=== PATIENT | male | born 1965 | race Caucasian/White ===

== ENCOUNTER 2017-11-19 17:48 | Emergency (ER) | payer SELFPAY ==
[2017-11-19 17:58] VITALS: BP 127/85; PULSE 96; TEMP 98.5; O2SAT 96
[2017-11-19] MEDS ORDERED: Naproxen 550 mg Tab PO STA (19:09)
[2017-11-19] MEDS ORDERED: Naproxen 550 mg Tab PO ONE (19:17)
[2017-11-19 19:28] LABS: URINE BILIRUBIN NEGATIVE (NEGATIVE); URINE BLOOD NEGATIVE (NEGATIVE); URINE CLARITY Clear (Clear); URINE COLOR Yellow (YELLOW); URINE GLUCOSE (UA) NORMAL (Normal); URINE LEUKOCYTE ESTERASE NEG Leu/uL (Negative); URINE PROTEIN NEGATIVE (NEGATIVE); URINE UROBILINOGEN NORMAL mg/dL (0.2-1.0)
--- NOTE | 2017-11-19 20:20 | C.PDOC ---
Time Seen by Provider: 11/19/17 18:58 Chief Complaint (Nursing): Abdominal Pain History Per: Patient Onset/Duration Of Symptoms: Hrs, Intermittent Episodes Current Symptoms Are (Timing): Gone Severity: Moderate Location Of Pain/Discomfort: Suprapubic Quality Of Discomfort: Unable To Describe, "Pain" Exacerbating Factors: None Alleviating Factors: None Additional History Per: Prior Records Past Medical History Reviewed: Historical Data, Nursing Documentation, Vital Signs Vital Signs: Last Vital Signs Temp 98.5 F 11/19/17 17:55 Pulse 96 H 11/19/17 17:55 Resp 18 11/19/17 17:55 BP 127/85 11/19/17 17:55 Pulse Ox 96 11/19/17 17:55 - Medical History PMH: HTN Surgical History: No Surg Hx Family History: States: Unknown Family Hx - Social History Hx Tobacco Use: Yes Hx Alcohol Use: Yes Hx Substance Use: No - Immunization History Hx Tetanus Toxoid Vaccination: No Hx Influenza Vaccination: No Hx Pneumococcal Vaccination: No Review Of Systems Except As Marked, All Systems Reviewed And Found Negative. Constitutional: Negative for: Fever, Weakness Cardiovascular: Negative for: Chest Pain Respiratory: Negative for: Shortness of Breath Gastrointestinal: Negative for: Vomiting, Diarrhea, Melena, Hematochezia, Hematemesis, Rectal Pain Genitourinary: Negative for: Dysuria, Hematuria, Scrotal Pain Musculoskeletal: Positive for: Back Pain (lower, on/off for 1 month). Negative for: Neck Pain Skin: Negative for: Rash Neurological: Negative for: Weakness, Numbness Physical Exam - Physical Exam Appears: Non-toxic, No Acute Distress Skin: Normal Color, Warm, Dry, No Rash Head: Atraumatic, Normacephalic Eye(s): bilateral: Normal Inspection, PERRL, EOMI Neck: Normal ROM, Supple Cardiovascular: Rhythm Regular Respiratory: Normal Breath Sounds, No Accessory Muscle Use Gastrointestinal/Abdominal: Soft, No Tenderness, No Mass, No Distention Back: No CVA Tenderness, No Vertebral Tenderness Extremity: Normal ROM Neurological/Psych: Oriented x3, Normal Motor, Normal Sensation ED Course And Treatment - Laboratory Results Interpretation Of Abnormal: Urinalysis normal O2 Sat by Pulse Oximetry: 96 Pulse Ox Interpretation: Normal - Other Rad LS spine x-rays X-Ray: Interpreted by Me, Viewed By Me Interpretation: No acute fx Reassessment Condition: Improved Disposition Counseled Patient/Family Regarding: Studies Performed, Diagnosis, Need For Followup, Rx Given - Disposition Disposition: HOME/ ROUTINE Disposition Time: 20:19 Condition: STABLE Additional Instructions: Drink plenty of fluids. Follow up with your doctor for further evaluation and treatment. Return to the ER if you develop fever, vomiting, weakness, numbness, trouble urinating, worsening of symptoms or if you have any other concerns. Prescriptions: Cyclobenzaprine [Cyclobenzaprine HCl] 10 mg PO TID PRN #15 tab PRN Reason: Muscle Spasm Naproxen [Naprosyn] 1 tab PO BID PRN #20 tab PRN Reason: Pain Polyethylene Glycol 3350 [Miralax] 17 gm PO DAILY #7 packet Instructions: Low Back Pain (DC) Forms: General Discharge Instructions - Clinical Impression Clinical Impression: Acute suprapubic pain, Low back pain
[2017-11-19 20:29] VITALS: RESP 20
--- NOTE | 2017-11-20 08:18 | RAD ---
Lumbar spine three views History: Low back pain. Comparison: None available. Findings: Spinal alignment is maintained. Vertebral body heights are preserved. Disc space narrowing noted at the T10-11 level as well as the L5-S1 level. Minimal anterior osteophytosis at the L4-5 and L5-S1 levels. Mild lower level facet hypertrophy at the L5-S1 level. Few inferior endplate concavities at the L5 and T11 vertebral bodies. Mild superior endplate concavities of the T12 vertebral body. Impression: Mild degenerative changes. If pain persists, consider MRI.
== END 2017-11-19 20:28 | disposition home or self-care (01) ==
LOC: C.ER 17:48
DX: M54.5 Low back pain (principal); R10.30 Lower abdominal pain, unspecified; I10 Essential (primary) hypertension; Z72.0 Tobacco use

== ENCOUNTER 2017-11-25 20:18 | Emergency (ER) | payer SELFPAY ==
[2017-11-25 20:33] VITALS: RESP 20; TEMP 98.2; O2SAT 98
[2017-11-25] MEDS ORDERED: Enoxaparin 40 mg Syringe SC STA (21:45)
--- NOTE | 2017-11-25 21:47 | C.PDOC ---
Time Seen by Provider: 11/25/17 21:28 Chief Complaint (Nursing): Chest Pain Past Medical History Vital Signs: Last Vital Signs Temp 98.2 F 11/25/17 20:30 Pulse 93 H 11/25/17 20:30 Resp 20 11/25/17 20:30 BP 147/96 H 11/25/17 20:30 Pulse Ox 98 11/25/17 21:47 - Medical History PMH: HTN Family History: States: Unknown Family Hx - Social History Hx Tobacco Use: Yes Hx Alcohol Use: Yes Hx Substance Use: No - Immunization History Hx Tetanus Toxoid Vaccination: No Hx Influenza Vaccination: No Hx Pneumococcal Vaccination: No ED Course And Treatment O2 Sat by Pulse Oximetry: 98 Medical Decision Making Medical Decision Making: explaining pt's L chest pain seemed positionally reproducable with normal EKG pt's asking further questions which infuriated the pt- noted pt's HR increased to 150 and BP increased significantly. pt demanded to be released immediately, signed AMA papers, promises nurses to return Pt is aware he had a potentially fatal arrhythmia in the ED (Rapid AF @ 150) and verbalized understanding, then followed with, " I don't care, I want to be dicharged now." AMA paperwork completed by MAXIME Gil and signed by pt and this MD Considering pt's morbid obesity, alcohol and cigarette abuse pt in very high risk category for ACS and/or CVA/thrombosis- explained to pt and who verbalized understanding. Disposition - Disposition Disposition: AGAINST MEDICAL ADVICE Disposition Time: 21:53 Condition: FAIR Forms: [facility] (Icelandic) - Clinical Impression Clinical Impression: Chest pain at rest, Rapid atrial fibrillation
[2017-11-25] MEDS ORDERED: Enoxaparin 100 mg Syringe ONE (21:54)
[2017-11-25 21:56] VITALS: BP 188/133
[2017-11-25 22:00] LABS: BASO # 0.1 K/uL (0.0-0.2); EOS # 0.5 K/uL (0.0-0.7); EOS % 4.7 % (0.0-4.0); HEMOGLOBIN 14.3 g/dL (12.0-18.0); LYMPH # 2.8 K/uL (1.0-4.3); LYMPH % 28.7 % (20.0-40.0); MEAN CELL VOLUME 82.1 fL (80.0-94.0); MEAN CORPUSCULAR HEMOGLOBIN 27.9 pg (27.0-31.0); MEAN PLATELET VOLUME 8.3 fL (7.2-11.7); MONO # 0.8 K/uL (0.0-0.8); MONO % 7.7 % (0.0-10.0); NEUT # 5.7 K/uL (1.8-7.0); NEUT % 57.9 % (50.0-75.0); NRBC % 0.1 % (0.0-2.0); RBC 5.13 Mil/uL (4.40-5.90); RED CELL DISTRIBUTION WIDTH 13.1 % (11.5-14.5); WHITE BLOOD COUNT 9.9 K/uL (4.8-10.8)
[2017-11-25 22:04] VITALS: PULSE 110
[2017-11-25 22:11] LABS: PARTIAL THROMBOPLASTIN TIME 30 SECONDS (21-34); PROTHROMBIN TIME 11.5 SECONDS (9.7-12.2)
[2017-11-25 22:18] LABS: ALT/SGPT 68 U/L (21-72); AST/SGOT 36 U/L (17-59); BLOOD UREA NITROGEN 10 mg/dL (9-20); CALCIUM 8.8 mg/dl (8.6-10.4); GFR AFRICAN-AMERICAN > 60; GFR NON-AFRICAN AMERICAN > 60
[2017-11-25 22:28] LABS: B-TYPE NATRIURETIC PEPTIDE 23.7 pg/mL (0-900)
[2017-11-25 22:42] LABS: D DIMER < 200 ng/mlDDU (0-243)
--- NOTE | 2017-11-26 07:03 | C.PDOC ---
History Of Present Illness 52 year old male presents to the ED for evaluation of left upper chest and left shoulder discomfort which began [employer]. Patient states symptoms resolved prior to arrival. Patient was evaluated in [facility] on 11/19 for complaints of abdominal pain and back pain and was diagnosed with back strain and constipation. Patient states he took a laxative and was able to find relief. Patient admits to smoking cigarettes and alcohol use. He denies nausea, vomiting, extremity numbness/weakness. Time Seen by Provider: 11/25/17 21:28 Chief Complaint (Nursing): Chest Pain History Per: Patient History/Exam Limitations: no limitations Onset/Duration Of Symptoms: Hrs Current Symptoms Are (Timing): Better Quality: "Pain" Additional History Per: Patient Past Medical History Reviewed: Historical Data, Nursing Documentation, Vital Signs Vital Signs: Last Vital Signs Temp 98.2 F 11/25/17 20:30 Pulse 110 H 11/25/17 22:03 Resp 20 11/25/17 22:03 BP 188/133 H 11/25/17 22:03 Pulse Ox 98 11/26/17 07:09 - Medical History PMH: HTN Surgical History: No Surg Hx Family History: States: Unknown Family Hx - Social History Hx Tobacco Use: Yes Hx Alcohol Use: Yes Hx Substance Use: No - Immunization History Hx Tetanus Toxoid Vaccination: No Hx Influenza Vaccination: No Hx Pneumococcal Vaccination: No Review Of Systems Cardiovascular: Positive for: Chest Pain (left, upper ) Gastrointestinal: Negative for: Nausea, Vomiting Musculoskeletal: Positive for: Shoulder Pain (left ) Neurological: Negative for: Weakness, Numbness Physical Exam - Physical Exam Appears: Non-toxic, No Acute Distress, Other (morbidly obese ) Skin: Normal Color, Warm, Dry Head: Atraumatic, Normacephalic Eye(s): bilateral: Normal Inspection Oral Mucosa: Moist Neck: Supple Chest: Symmetrical, No Deformity, Tenderness ( to left upper chest wall ) Cardiovascular: Rhythm Regular, No Murmur Respiratory: Normal Breath Sounds, No Rales, No Rhonchi, No Wheezing Extremity: Normal ROM, Capillary Refill (less than 2 seconds ) Neurological/Psych: Oriented x3, Normal Speech, Normal Cognition ED Course And Treatment - Laboratory Results Result Diagrams: 11/25/17 21:57 11/25/17 21:57 ECG: Interpreted By Me, Viewed By Me ECG Rhythm: Sinus Rhythm Rate From EC O2 Sat by Pulse Oximetry: 98 (on RA) Pulse Ox Interpretation: Normal Progress Note: Bloodwork, urinalysis, EKG, CXR ordered and reviewed. Lopressor PO and Lovenox SC administered. Patient and became agitated at bedside. Patient's heart rate increased to around 150bpm and he demanded to be discharge. Medical Decision Making Medical Decision Making: explaining pt's L chest pain seemed positionally reproducable with normal EKG pt's asking further questions which infuriated the pt- noted pt's HR increased to 150 and BP increased significantly. pt demanded to be released immediately, signed AMA papers, promises nurses to return Pt is aware he had a potentially fatal arrhythmia in the ED (Rapid AF @ 150) and verbalized understanding, then followed with, " I don't care, I want to be dicharged now." AMA paperwork completed by MAXIME Gil and signed by pt and this MD Considering pt's morbid obesity, alcohol and cigarette abuse pt in very high risk category for ACS and/or CVA/thrombosis- explained to pt and who verbalized understanding. Disposition - Disposition Disposition: AGAINST MEDICAL ADVICE Disposition Time: 21:53 Condition: FAIR Forms: [facility] (Tuvaluan) - Clinical Impression Clinical Impression: Chest pain at rest, Rapid atrial fibrillation - Scribe Statement The provider has reviewed the documentation as recorded by the Scribe (Karen Jiang) Provider Attestation: All medical record entries made by the Scribe were at my direction and personally dictated by me. I have reviewed the chart and agree that the record accurately reflects my personal performance of the history, physical exam, medical decision making, and the department course for this patient. I have also personally directed, reviewed, and agree with the discharge instructions and disposition.
--- NOTE | 2017-11-26 16:20 | CARD ---
APPROVED REPORT EKG Measurement Heart [id number] <Conclusion> Normal sinus rhythm Normal ECG
== END 2017-11-25 22:04 | disposition left against medical advice (07) ==
LOC: C.ER 20:18
DX: I48.91 Unspecified atrial fibrillation (principal); R07.9 Chest pain, unspecified; I10 Essential (primary) hypertension; Z72.0 Tobacco use
CPT/HCPCS: 80053; 83880; 84484; 85025; 85378; 85610; 85730; 93005; 96372; 99285; G0480; J1650